=== PATIENT | male | born 1940 | race Caucasian/White ===

== ENCOUNTER → 2024-01-24 06:53 | Outpatient (REF) | payer MEDICARE, SELFPAY ==
[2024-01-24 10:14] LABS: % Basophils 0.3 % (0-2); % Eosinophils 2.9 % (0-6); % Immature Granulocytes 0.3 % (0-0.5); % Lymphocytes 28.8 % (20.5-51.1); % Monocytes 9.4 % (1.7-9.3); % Neutrophils 58.3 % (42.2-75.2); Absolute Eosinophils 0.3 10^3/uL (0-0.7); Absolute Lymphocytes 2.7 10^3/uL (1.2-3.4); Absolute Monocytes 0.9 10^3/uL (0.1-0.6); Absolute Neutrophils 5.4 10^3/uL (1.4-6.5); Hematocrit 41.3 % (39.0-52.0); Hemoglobin 14.5 g/dL (13.0-18.0); Mean Corp Hgb Conc. 35.1 g/dL (33.0-37.0); Mean Corpuscular Hgb 33.6 pg (27.0-31.0); Mean Corpuscular Volume 95.8 fL (80.0-94.0); Mean Platelet Volume 9.9 fL (7.4-10.4); Nucleated Red Blood Cells % 0 % (-); Platelet Count 153 10^3/uL (130-400); Red Blood Cell Count 4.31 10^6/uL (4.70-6.10); Red Cell Dist. Width 13.2 % (11.5-14.5); White Blood Cell Count 9.3 10^3/uL (4.8-10.8)
[2024-01-24 10:21] LABS: Urine Albumin Negative (Neg - Trace); Urine Bilirubin Negative (Negative); Urine Character Clear (Clear); Urine Color Yellow; Urine Glucose Negative (Negative); Urine Ketone Negative (Negative); Urine Leukocyte Negative (Negative); Urine Nitrite Negative (Negative); Urine Occult Blood Negative (Negative); Urine Urobilinogen Negative (Neg - 1+)
[2024-01-24 11:40] LABS: ALT (SGPT) 22 U/L (0-50); AST (SGOT) 40 U/L (17-59); Alkaline Phosphatase 118 U/L (38-126); Blood Urea Nitrogen 17 mg/dl (9-20); Calcium 9.2 mg/dl (8.4-10.2); Carbon Dioxide 25 mmol/L (22-30); Chloride 100 mmol/L (98-107); Glucose 98 mg/dl (70-99); Potassium 4.2 mmol/L (3.5-5.1); Sodium 134 mmol/L (135-145); Total Bilirubin 0.5 mg/dl (0.2-1.3); Total Cholesterol 149 mg/dl (50-199); Total Protein 6.8 g/dl (6.3-8.2); Triglyceride 125 mg/dl (10-149); Very Low Density Lipoprotein 25 mg/dl (0-30); eGFR > 60.00
[2024-01-24 11:41] LABS: HDL Cholesterol 36 mg/dl; LDL Cholesterol, Calculated 88 mg/dl
== END ==
LOC: HWLAB 06:53
PROVIDERS: ATTENDING PHYSICIAN Family Medicine
DX: E78.5 Hyperlipidemia, unspecified (principal); C34.91 Malignant neoplasm of unspecified part of right bronchus or lung; Z00.00 Encounter for general adult medical examination without abnormal findings
CPT/HCPCS: 36415; 80053; 80061; 81003; 85025

== ENCOUNTER → 2024-06-04 08:00 | Outpatient (REF) | payer MEDICARE, SELFPAY | LOC: HWRCS 08:00 | PROVIDERS: ATTENDING PHYSICIAN Internal Medicine Cardiovascular Disease; FAMILY PHYSICIAN Family Medicine | DX: I35.0 Nonrheumatic aortic (valve) stenosis (principal) | CPT/HCPCS: 93306 ==

== ENCOUNTER → 2025-01-08 08:34 | Outpatient (REF) | payer MEDICARE, SELFPAY ==
[2025-01-08 12:32] LABS: Hematocrit 41.7 % (39.0-52.0); Hemoglobin 15.0 g/dL (13.0-18.0); Mean Corp Hgb Conc. 36.0 g/dL (33.0-37.0); Mean Corpuscular Volume 95.9 fL (80.0-94.0); Nucleated Red Blood Cells % 0 % (-); Platelet Count 143 10^3/uL (130-400); Red Cell Dist. Width 13.6 % (11.5-14.5)
[2025-01-08 12:43] LABS: ALT (SGPT) 32 U/L (0-50); AST (SGOT) 50 U/L (17-59); Albumin 4.5 g/dl (3.5-5.0); Alkaline Phosphatase 91 U/L (38-126); Blood Urea Nitrogen 18 mg/dl (9-20); Calcium 9.0 mg/dl (8.4-10.2); Carbon Dioxide 26 mmol/L (22-30); Chloride 106 mmol/L (98-107); Glucose 89 mg/dl (70-99); HDL Cholesterol 35 mg/dl; LDL Cholesterol, Calculated 68 mg/dl; Potassium 3.8 mmol/L (3.5-5.1); Sodium 140 mmol/L (135-145); Total Protein 7.3 g/dl (6.3-8.2); Very Low Density Lipoprotein 29 mg/dl (0-30); eGFR > 60.00
[2025-01-08 13:00] LABS: Vitamin D, 25-OH*** 47.7 ng/mL (30-80)
[2025-01-08 13:13] LABS: TSH 1.50 uIU/ml (0.47-4.68)
[2025-01-08 13:32] LABS: Vitamin B12 263 pg/ml (239-931)
[2025-01-12 13:31] LABS: Lyme Antibody Screen, EIA Negative (Negative)
== END ==
LOC: HWLAB 08:34
DX: N40.0 Benign prostatic hyperplasia without lower urinary tract symptoms (principal); I25.10 Atherosclerotic heart disease of native coronary artery without angina pectoris; E78.5 Hyperlipidemia, unspecified; R53.83 Other fatigue; R00.8 Other abnormalities of heart beat
CPT/HCPCS: 36415; 80053; 80061; 82306; 82607; 84153; 84154; 84443; 85025; 86618

== ENCOUNTER 2025-03-06 08:14 | Day surgery (SDC) | payer MEDICARE, SELFPAY ==
[2025-03-06] VITALS (12 sets, daily range): BP systolic 94–143; BP diastolic 58–72; BMI 29.5
[2025-03-06 08:52] LABS: Hematocrit 40.3 % (39.0-52.0); Hemoglobin 14.3 g/dL (13.0-18.0); Mean Corp Hgb Conc. 35.5 g/dL (33.0-37.0); Mean Corpuscular Volume 97.1 fL (80.0-94.0); Platelet Count 142 10^3/uL (130-400); Red Cell Dist. Width 13.2 % (11.5-14.5)
[2025-03-06 09:29] LABS: Blood Urea Nitrogen 20 mg/dl (9-20); Calcium 9.3 mg/dl (8.4-10.2); Carbon Dioxide 25 mmol/L (22-30); Chloride 106 mmol/L (98-107); Estimated Creatinine Clearance 48 ml/min; Glucose 100 mg/dl (70-99); Potassium 4.0 mmol/L (3.5-5.1); Sodium 139 mmol/L (135-145); eGFR > 60.00
[2025-03-06] MEDS: NSS 234 ML IV (09:37)
--- NOTE | 2025-03-06 12:45 | ITS.CL.CATH ---
[facility] - Catheterization
Cardiac Catheterization
Procedure Report:
RIGHT AND LEFT HEART STUDY
Date of Procedure: March 06, 2025
Referring: Dr. Moise George
PROCEDURES:
1. Right heart catheterization
2. Left heart catheterization with coronary and single-plane left ventriculography
INDICATION: This is an 84-year-old gentleman who has been followed many years by Dr. George. He has a history of coronary artery disease and reported 90% or chronic total occlusion of the right coronary artery with collaterals. This was noted on
a cardiac catheterization done at [facility] more than 10 years ago. He has a history of ongoing tobacco use and non-small cell lung cancer as well as underlying COPD. He had resection of his right lung more than 20 years ago as a
curative procedure for his non-small cell lung cancer. He has known moderate aortic stenosis. His last echocardiogram from 2022 was notable for mean aortic valve gradient of 31 mmHg in the echocardiogram from 06/20/2024 was notable for a mean
gradient of 25 mmHg.
At baseline, Mr. Minaya is physically quite active. He and his state that he is outside in the yard cutting down trees and caring for his property. He states that his days begin with a 1 to 2 mile walk. Recently he may have noted some
increased shortness of breath with exertion. His last stress study in 2022 was notable for a small area of mildly decreased uptake that was fixed at the basal inferior septum, mid inferior and apical segments with an LVEF of 66%. He denies any
anginal symptoms aside from increased shortness of breath with exertion. He denies any chest discomfort.
He has a history going back several years of intermittent dizziness with episodes of near syncope. The episodes typically occur at rest when sitting in a car and are not exertionally related. Although family has noticed a subtle change in his
exercise capacity, the patient, has really noted no significant change. He has worn several CAM monitors with symptoms occurring during monitoring on at least 1 occasion. No significant arrhythmia was detected. He is now referred for coronary
angiography given increased shortness of breath with exertion and short runs of nonsustained ventricular tachycardia lasting up to 6 beats.
ACCESS: Right radial artery, 6 Croatian sheath in right common femoral vein, 6 Croatian sheath
HEMODYNAMICS : mmHg
RA (m) : 11
RV (s/d) : 42/5
PA (s/d, m) : 37/17, 24
PCWP (m) : 15
AO (s/d, m) : 135/57, 84
LV (s/d) : 142/9
LVEDP : 14
Estimated Lynne Cardiac Output: 4.75 L / min and Cardiac Index: 2.59 L/ min / m-2
Systemic vascular resistance: 15.4 Wood units or 1229 [id number](-5)
Pulmonary vascular resistance: 1.9 Wood units or 152 [id number](-5)
AORTIC VALVE:
Mean Gradient: 15 mmHg
Aortic Valve Area: 1.8 cm2
CORONARY FINDINGS :
Dominance: Right
LEFT MAIN: Normal
LEFT ANTERIOR DESCENDING: The LAD is heavily calcified as it arises from the left main with a 50% proximal stenosis and 60% mid stenosis. The distal vessel wraps around the apex.
CIRCUMFLEX: The circumflex is a calcified nondominant vessel that supplies a single sizable obtuse marginal branch. The mid circumflex has a calcified 90% stenosis extending into the proximal portion of the obtuse marginal branch. The obtuse
marginal branch becomes very tortuous and bifurcates into smaller and a larger daughter branch which in turn bifurcates.
RIGHT CORONARY ARTERY: The right coronary artery is a heavily calcified dominant vessel that was previously reported to have a high-grade calcified mid stenosis vs chronic total occlusion by coronary angiography at [facility] [place] more than 10 years ago. There is heavily calcified fairly diffuse atherosclerosis in the mid right coronary artery with likely focal occlusion and collateralization followed by a heavily calcified 90% distal stenosis. The PDA is a moderate
caliber vessel that is patent.
VENTRICULOGRAPHY: Left ventriculography is performed in SIDDIQUI projection. Digital single-plane left ventricular ejection fraction is estimated at 60%. There is very mild hypokinesis of the inferior apical wall.
SEDATION: 36 minutes of procedural sedation was utilized. An independent medical scheduler was present to assist with and help manage the patient's level of consciousness and physiologic status
RADIATION SUMMARY: Fluoro Time (min): 12.6, Dose (mGy): 527, DAP (Gy.cm2) : 44.9
CONCLUSIONS
1. Complex coronary disease in the RCA with heavily calcification and possible / probable collateralized chronic occlusion vs high grade stenosis. Intervention on the RCA would carry substantial risk given chronicity of the stenosis and lack of
collateralization. A large inferior myocardial infarction would result if collateral would shut during attempted intervention.
2. High grade mid circumflex - OM stenosis and mid LAD
3. Preserved LVEF
RECOMMENDATIONS
1. I have asked family to obtain old records of prior catheterization
2. Continued medical therapy. Could consider PET CT to assess for significant lateral or anterior ischemia if the patient and family are so inclined. I would be looking for significant ischemia in this vascular distribution
3. Continue aspirin and increase statin to 80mg per family request and given LDL cholesterol of 68 mg/dl
4. Mr. Minaya will follow up with Dr. George. I would wait for his input before ordering additional studies (like PET CT) given patients lack of anginal symptoms.
Copy to: Dr. Moise George
== END 2025-03-06 14:38 | disposition home or self-care (01) ==
LOC: CATH 08:14
PROVIDERS: ATTENDING PHYSICIAN Internal Medicine Interventional Cardiology; OTHER PHYSICIAN Internal Medicine Cardiovascular Disease
DX: I25.10 Atherosclerotic heart disease of native coronary artery without angina pectoris (principal); I25.84 Coronary atherosclerosis due to calcified coronary lesion; I47.20 Ventricular tachycardia, unspecified; Z79.82 Long term (current) use of aspirin; I10 Essential (primary) hypertension; J44.9 Chronic obstructive pulmonary disease, unspecified; F17.210 Nicotine dependence, cigarettes, uncomplicated; Z79.899 Other long term (current) drug therapy; Z90.2 Acquired absence of lung [part of]; I35.0 Nonrheumatic aortic (valve) stenosis
CPT/HCPCS: 80048; 85027; 93460; 99152; 99153; C1769; C1894; Q9967

== ENCOUNTER 2025-05-16 16:32 | Emergency (ER) | payer MEDICARE, SELFPAY ==
[2025-05-16 16:34] VITALS: BP 148/84
[2025-05-16] MEDS: NSS 500 IV (17:50)
[2025-05-16] MEDS: DUONEB 3 ML INH (17:53)
[2025-05-16 18:01] LABS: Hematocrit 42.7 % (39.0-52.0); Hemoglobin 14.7 g/dL (13.0-18.0); Mean Corp Hgb Conc. 34.4 g/dL (33.0-37.0); Mean Corpuscular Volume 99.5 fL (80.0-94.0); Nucleated Red Blood Cells % 0 % (-); Platelet Count 146 10^3/uL (130-400); Red Cell Dist. Width 13.5 % (11.5-14.5)
[2025-05-16 18:23] LABS: ALT (SGPT) 30 U/L (0-50); AST (SGOT) 50 U/L (17-59); Albumin 4.2 g/dl (3.5-5.0); Alkaline Phosphatase 98 U/L (38-126); Blood Urea Nitrogen 14 mg/dl (9-20); Calcium 9.4 mg/dl (8.4-10.2); Carbon Dioxide 28 mmol/L (22-30); Chloride 99 mmol/L (98-107); Glucose 104 mg/dl (70-99); Potassium 3.9 mmol/L (3.5-5.1); Sodium 133 mmol/L (135-145); Total Protein 7.2 g/dl (6.3-8.2); eGFR > 60.00
[2025-05-16 19:58] VITALS: BP 129/68
--- NOTE | 2025-05-16 20:29 | ED.GENMED ---
History of Present Illness
General
Chief Complaint: Abdominal Symptoms
Source: patient, spouse and family
Time Seen by Provider: 05/16/25 17:12
History of Present Illness
History of Present Illness:
Note:
CHIEF COMPLAINT(S)
Abdominal pain and diarrhea.
HISTORY OF PRESENT ILLNESS
The patient is an 84-year-old male who presents with complaints of abdominal pain and diarrhea. Symptoms began three days ago with an onset of diarrhea, which has since resolved. The patient reports significant discomfort in the lower abdomen,
specifically under the belly button on both sides. The patient also experienced vomiting three days ago, which has resolved. Additionally, the patient has had a cough persisting for approximately four weeks. The patient notes that the discomfort
increases after spending a couple of hours upright in the morning, but he is able to sleep in a reclined position. The patient denies any fever. There is a history of diverticulosis in the family, specifically in the patients mother. The patient has
a past medical history significant for a lobectomy due to lung cancer, followed by chemotherapy. On physical examination, there is a noted umbilical hernia which is tender, and the patient is advised to monitor the condition to prevent incarceration.
PAST MEDICAL AND SURIGICAL HISTORY
Right lung lobectomy for lung cancer followed by chemotherapy.
PHYSICAL EXAM
General: Alert, no acute distress.
Skin: Warm, dry.
Head: Normocephalic, atraumatic.
Neck: Supple, trachea midline.
Eye, Ears, Nose, Mouth and Throat: Oral mucosa moist.
Cardiovascular: Regular heart rate without murmurs.
Respiratory: Coarse breath sounds bilaterally.
Gastrointestinal: Tender lower abdomen, presence of an umbilical hernia; nondistended.
Back: Normal range of motion, normal alignment.
Musculoskeletal: Normal range of motion, normal strength.
Neurological: Alert and oriented to person, place, time, and situation, no focal neurological deficit observed.
Psychiatric: Cooperative, appropriate mood & affect.
PROBLEM LIST
Acute Problems:
- Abdominal pain
- Umbilical hernia
- Persistent cough
- Resolved diarrhea
Chronic Problems:
- History of lung cancer
PLAN
1. Conduct an abdominal scan to assess for diverticulitis or signs of inflammation in the colon.
2. Obtain laboratory studies, including blood tests, to evaluate the patients current condition.
3. Perform a chest X-ray to rule out pneumonia or other respiratory conditions due to the persistent cough.
4. Administer an albuterol nebulizer treatment to provide relief from the cough.
5. Provide hydration therapy due to recent diarrhea, although the patient reports good fluid intake.
6. Monitor the umbilical hernia for signs of increasing pain or potential incarceration.
DIFFERENTIAL DIAGNOSIS
The differential diagnosis includes, in no particular order and is not limited to:
1. Diverticulitis
2. Hernia-related complications
3. Gastroenteritis
4. Colitis
5. Irritable Bowel Syndrome (IBS)
6. Small Bowel Obstruction
7. Lower Respiratory Tract Infection
8. Pneumonia
9. Gastroesophageal Reflux Disease (GERD)
10. Peptic Ulcer Disease
CARE-UPDATE
05/16/25 - 20:23
Patient presented with an umbilical hernia, likely resulting from a previous operation. Imaging showed dilation of the bowel, possibly indicating either an infection or partial small bowel stricture from scar tissue. Patient is currently stable,
passing gas, and not experiencing vomiting, suggesting some bowel movement. X-ray and labs are unremarkable; no signs of diverticulitis.
Two management options were discussed:
1. Allow the patient to go home with close monitoring and adhere to a clear liquid diet for 24-48 hours to rest the bowel. Fluids such as water, coffee, soup broth, Jello, applesauce, and orange juice are permitted.
2. Hospital observation to monitor progress and administer clear fluids as needed.
Patient agreed to the home management plan with the understanding of returning if symptoms worsen (e.g., inability to pass gas, increased pain, vomiting). Plans to advance to a BRAT diet if tolerated after 48 hours and gradually resume normal diet.
Provided patient with clear liquid diet instructions and will receive a copy of their lab results.
Disposition:
SUMMARY OF ENCOUNTER
An 84-year-old male presented with resolved diarrhea and vomiting, now experiencing discomfort in the lower abdomen. Initial evaluation showed an umbilical hernia, which I reduced. CT displayed mildly dilated proximal to mid-small bowel, air-fluid
levels indicating a mild partial proximal small bowel obstruction. Labs showed normal CBC and CMP. Reassessment indicated improvement; the patient was passing gas without vomiting.
DISPOSITION
Discharge
ASSESSMENT
Mild partial proximal small bowel obstruction, possibly due to the reduced umbilical hernia.
PLAN
The patient is recommended for discharge with instructions to follow a clear liquid diet for 48 hours and was advised to support the umbilical hernia to avoid further complications. Outpatient follow-up for the hernia and potential surgical
consultation was recommended. The patient is to return immediately if experiencing worsening pain or vomiting.
INDEPENDENT REVIEW OF LABS AND INTERPRETATION OF TESTS
My independent review of CBC is normal. My independent review of CMP is normal. My independent interpretation of the CT scan reveals mildly dilated proximal to mid-small bowel segments with air-fluid levels, suggesting a mild partial proximal small
bowel obstruction.
PATIENT EDUCATION AND COUNSELING
The patient and family were advised on following a clear liquid diet for 48 hours and supporting the umbilical hernia, understanding the importance of returning to the emergency department if symptoms worsen, and discussing potential surgical
options for hernia management.
FOLLOW-UP INSTRUCTIONS
Follow up with a surgeon for evaluation of the umbilical hernia and potential surgical intervention. Emphasize immediate return to the emergency department if new symptoms arise.
MEDICAL DECISION MAKING
-Complexity of Data Reviewed: Chronic conditions affecting care [History of lung cancer]. Differential diagnosis included hernia-related complications and small bowel obstruction.
-Data:
Category 1: Labs reviewed included normal CBC and CMP.
Category 2: My independent interpretation of the CT scan revealed signs of intestinal dilation indicative of obstruction.
Category 3: Discussion of management with family members.
-Risk: Consideration of Admission/Observation: Escalation of care including admission/observation was considered given the complexity and risk of the patients presenting complaint, exam findings, and underlying comorbidities. However, ultimately, I
feel the patient is safe for outpatient management with close follow-up. Reasoning: Work-up reassuring, does not reveal any acute life/organ-threatening processes, patients symptoms well controlled upon reevaluation, reexamination is reassuring,
vitals are stable, patient agreeable with discharge, reliable for follow-up.
DIAGNOSIS
- K56.60 Partial intestinal obstruction, unspecified as to acute or chronic.
- K42.9 Umbilical hernia without obstruction or gangrene.
Past History
Past History
ED Past Medical History: Cancer
ED Past Surgical History: Other (Lung resection ); Negative Cardiac
Social History
Tobacco: Former smoker
Alcohol: Occasional
Drug: None
Personal:
Living: with family
Employment: Retired
Phy Exam
Physical Exam
Physical Exam:
.
Course
Orders/Labs/Results
Orders:
Orders
05/16/25 17:33
0.9% Sodium Chloride 500 ml [Nss] 500 ml IV BOLUS
05/16/25 17:35
CT Abd/Pel (IV only)-DH only Urgent
Comment:
Reason For Exam: lower abd pain
05/16/25 17:37
Ipratropium/Albuterol Sulfate [Duoneb] 3 ml INH R NOW STA
05/16/25 17:38
CR Chest - 2 Views Urgent
Comment:
Reason For Exam: cough, h/o lobectomy
05/16/25 17:51
Complete Blood Count/With Diff Urgent
Comprehensive Metabolic Panel Urgent
Abnormal Lab Results
05/16/25
17:51
RBC 4.29 L 10^6/uL
(4.70-6.10)
MCV 99.5 H fL
(80.0-94.0)
MCH 34.3 H pg
(27.0-31.0)
Lymphocytes % 20.1 L %
(20.5-51.1)
Sodium 133 L mmol/L
(135-145)
Glucose 104 H mg/dl
(70-99)
05/16/25 17:51
05/16/25 17:51
Vital Signs
Initial and Last Documented VS:
Initial Vital Signs
Temp Pulse Resp BP Pulse Ox
97.6 F 70 16 148/84 95
05/16/25 16:34 05/16/25 16:34 05/16/25 16:34 05/16/25 16:34 05/16/25 16:34
Last Documented Vital Signs
Temp Pulse Resp BP Pulse Ox
97.6 F 75 17 129/68 94
05/16/25 16:34 05/16/25 19:58 05/16/25 19:58 05/16/25 19:58 05/16/25 19:58
*Pulse Oximetry
SaO2: 94
Oxygen Mode of Delivery: Room air
Patient hypoxic: no
*Critical Care Note
Total Time (30-74mins, 75-104mins- exclusive of procedures): Not Applicable
ED Attending Note
-
Portions of this chart may have been created with voice recognition software.� Occasional wrong word or��sound alike� substitutions may have occurred due to the inherent limitations of voice recognition software.
Discharge Plan
Departure
Patient Disposition: Home (Routine Discharge)
Date of Disposition: 05/16/25
Time of Disposition: 20:30
Patient with high blood pressure during this ER visit?: No
Discharge Problem:
Partial small bowel obstruction
Instructions: Clear Liquid Diet, Abdominal Pain
Prescriptions:
No Action
omeprazole 20 MG capsule,delayed release(DR/EC)
20 mg PO DAILY
Sleep Aid (doxylamine) 25 MG tablet
12.5 mg PO HS
enalapril maleate 10 MG tablet
10 mg PO BID
diltiazem HCl 300 MG capsule,extended release 24hr
300 mg PO DAILY
aspirin 81 MG tablet,delayed release (DR/EC)
81 mg PO QPM
coenzyme S45-dhstuaz E 1 CAP capsule
1 cap PO DAILY
folic acid 0.8 MG capsule
0.8 mg PO DAILY
hydrochlorothiazide 12.5 MG tablet
12.5 mg PO DAILY
multivitamin with folic acid [Tab-A-Arian] 1 TABLET tablet
1 tab PO DAILY
fluticasone furoate-vilanterol [Breo Ellipta] 1 EACH blister with device
1 puff inhalation DAILY
acetaminophen [Tylenol Extra Strength] 500 MG tablet
1,000 mg PO Q6HPRN PRN (Reason: mild pain) Qty: 1 0RF
ibuprofen 200 MG tablet
400 - 600 mg PO Q6HPRN PRN (Reason: moderate pain) Qty: 1 0RF
atorvastatin [Lipitor] 80 mg tablet
80 mg PO QPM Qty: 90 5RF
Referrals:
Dejuan Buchanan MD, Resident [Family Provider, General]
Florentin Villa MD [Active, Surgical]
Activity Restrictions/Additional Instructions:
Partial small bowel obstruction
Please stick to clear liquid diet for the next 48 hours. Please see your doctor or surgery in the next 1 week for evaluation of your umbilical hernia. Please advance diet slowly after 48 hours if you continue to feel improved as discussed. Return
immediately for vomiting, abdominal pain, fevers, if your hernia is protruded and painful or any other concerns.
Interventions
Interventions:
*Risk Screen - Suicide Last Done: 05/16/25 18:00
*General Assessment Last Done: 05/16/25 18:00
*Neglect/Abuse Screening Last Done: 05/16/25 18:00
*ED- Fall Risk Assessment Last Done: 05/16/25 18:00
*ED COVID-19 Vaccine History Last Done: 05/16/25 18:00
*ED Influenza Vaccine History Last Done: 05/16/25 18:00
LB-[id number]-[id number] Assessment Last Done: 05/16/25 17:58
Discharge Date and Time
Print Language: [id number]
== END 2025-05-16 20:51 | disposition home or self-care (01) ==
LOC: EMR 16:32
PROVIDERS: EMERGENCY PHYSICIAN Emergency Medicine
DX: K56.600 Partial intestinal obstruction, unspecified as to cause (principal); K42.9 Umbilical hernia without obstruction or gangrene; R05.9 Cough, unspecified; Z85.118 Personal history of other malignant neoplasm of bronchus and lung; Z90.2 Acquired absence of lung [part of]; Z92.21 Personal history of antineoplastic chemotherapy; Z87.891 Personal history of nicotine dependence
CPT/HCPCS: 94640; 96360; 99284; 71046; 74177; 80053; 85025; Q9967

== ENCOUNTER → 2025-06-08 08:16 | Outpatient (REF) | payer MEDICARE, SELFPAY | LOC: HWRCS 08:16 | PROVIDERS: ATTENDING PHYSICIAN Internal Medicine Cardiovascular Disease | DX: I35.0 Nonrheumatic aortic (valve) stenosis (principal) | CPT/HCPCS: 93306 ==

== ENCOUNTER 2025-06-10 09:02 | Emergency (ER) | payer MEDICARE, SELFPAY ==
[2025-06-10 09:09] VITALS: BP 165/78
[2025-06-10 09:38] LABS: Hematocrit 41.4 % (39.0-52.0); Hemoglobin 14.7 g/dL (13.0-18.0); Mean Corp Hgb Conc. 35.5 g/dL (33.0-37.0); Mean Corpuscular Volume 96.1 fL (80.0-94.0); Nucleated Red Blood Cells % 0 % (-); Platelet Count 154 10^3/uL (130-400); Red Cell Dist. Width 14.2 % (11.5-14.5)
[2025-06-10 09:48] LABS: ALT (SGPT) 24 U/L (0-50); AST (SGOT) 43 U/L (17-59); Albumin 4.6 g/dl (3.5-5.0); Alkaline Phosphatase 122 U/L (38-126); Blood Urea Nitrogen 14 mg/dl (9-20); Calcium 9.3 mg/dl (8.4-10.2); Carbon Dioxide 27 mmol/L (22-30); Chloride 105 mmol/L (98-107); Glucose 103 mg/dl (70-99); Lipase 74 U/L (23-300); Potassium 3.7 mmol/L (3.5-5.1); Sodium 140 mmol/L (135-145); Total Protein 7.6 g/dl (6.3-8.2); eGFR > 60.00
[2025-06-10 11:23] VITALS: BP 153/72
--- NOTE | 2025-06-10 12:37 | ED.GENMED ---
History of Present Illness
General
Chief Complaint: Abdominal Symptoms
Time Seen by Provider: 06/10/25 11:14
History of Present Illness
History of Present Illness:
see MDM
Past History
Past History
ED Past Medical History: Cancer
ED Past Surgical History: Other (Lung resection ); Negative Cardiac
Social History
Tobacco: Former smoker
Alcohol: Occasional
Drug: None
Personal:
Living: with family
Employment: Retired
Phy Exam
Physical Exam
Physical Exam:
see MDM
Course
Orders/Labs/Results
Orders:
Orders
06/10/25 09:15
Complete Blood Count/With Diff Urgent
Comprehensive Metabolic Panel Urgent
Lipase Urgent
06/10/25 11:38
Obstruct Series W/PA Chest [CR Obstruct Series W/pa Chest] Urgent
Comment:
Reason For Exam: hernia
Abnormal Lab Results
06/10/25
09:15
RBC 4.31 L 10^6/uL
(4.70-6.10)
MCV 96.1 H fL
(80.0-94.0)
MCH 34.1 H pg
(27.0-31.0)
Glucose 103 H mg/dl
(70-99)
06/10/25 09:15
06/10/25 09:15
Vital Signs
Initial and Last Documented VS:
Initial Vital Signs
Temp Pulse Resp BP Pulse Ox
36.5 C 58 16 165/78 95
06/10/25 09:09 06/10/25 09:09 06/10/25 09:09 06/10/25 09:09 06/10/25 09:09
Last Documented Vital Signs
Temp Pulse Resp BP Pulse Ox
36.5 C 60 16 134/87 97
06/10/25 09:09 06/10/25 12:45 06/10/25 12:45 06/10/25 12:45 06/10/25 12:45
MDM/Problems Addressed
Differential Diagnosis Includes:
see MDM
MDM/Problems Addressed:
Note:
CHIEF COMPLAINT(S)
Recurrent abdominal pain due to umbilical hernia.
HISTORY OF PRESENT ILLNESS
The patient is an 84-year-old male with a history of umbilical hernia diagnosed approximately one month ago. He presents today with a recurrence of lower gastrointestinal pain and a sensation of the hernia protruding, similar to his previous
episode. The previous hernia episode was managed by reducing the hernia, which initially provided relief. This morning, the patient experienced discomfort in the umbilical region while performing routine activities, including breakfast consumption.
He noted an ache in the area with pain radiating inward but not to the back. The patient attempted to reduce the hernia himself, which was challenging. He denied nausea or vomiting at this time, though he experienced vomiting during the previous
episode. He also reported having mild constipation the previous night but no major bowel movement difficulties today.
The patient recalls a recent history of increased coughing, which may have exacerbated the hernia. He also expressed concern about insufficient gas movement today. There is no reported straining during defecation currently, though there was some
last month. The patient has noted clear sputum production with his cough.
PAST MEDICAL AND SURIGICAL HISTORY
The patient reports a past lung resection due to cancer, performed in 2019.
CHRONIC MEDICAL CONDITIONS SIGNIFICANTLY AFFECTING CARE
Chronic Obstructive Pulmonary Disease (COPD).
SOCIAL HISTORY
The patient has a history of smoking, but it is not stated if it has ceased or continued.
PHYSICAL EXAM
GENERAL: Alert , in no apparent distress
EYE: pupils equal and reactive
NECK: Supple
ENT: o/p clr, mmm.
CARDIAC: Regular rate and rhythm .
LUNGS: Clear breath sounds bilaterally, no acute respiratory distress, no wheezes/rales/rhonchi
ABDOMEN: Soft, very small umbilical hernia, no skin discoloration, easily reducible without focal tenderness, no r/g, no cvat, normal bowel sounds
NEUROLOGICAL: Alert and oriented, no focal neuro deficits
SKIN: Warm and dry, skin intact.
MUSCULOSKELETAL: No edema, well perfused. neg azalia's sign
PSYCH: Normal and appropriate interaction.
Nursing notes reviewed and vital signs reviewed.
PROBLEM LIST
Acute:
1. Abdominal pain due to recurrent umbilical hernia.
2. Wheezing and potential respiratory issues likely exacerbated by COPD.
PLAN
1. Obtain X-ray imaging of the abdomen to evaluate for bowel obstruction and assess lung condition for potential pneumonia.
2. Contact the on-call surgeon to discuss advancing the surgical consultation from the initially scheduled date due to recurrent hernia complications.
3. Discuss the use of an abdominal binder for hernia support, especially during activities that may exacerbate the hernia.
DIFFERENTIAL DIAGNOSIS
The Differential Diagnosis includes, in no particular order and is not limited to:
1. Recurrent umbilical hernia.
2. Partial bowel obstruction.
3. Respiratory infection or pneumonia.
4. Chronic Obstructive Pulmonary Disease exacerbation.
5. Abdominal adhesions or scarring from past surgeries.
6. Diverticulitis.
7. Abdominal muscle strain.
8. Gastritis or peptic ulcer disease.
9. Gastroesophageal reflux disease.
10. Hernia incarceration or strangulation.
84 y/o M
lung cancer, smoker, lobectomy
coughs frequently
known umbilical hernia since lsat [facility]
PSBO on ct 05/16
pt's hernia was reduced in the ED
he hasn't been able to see dr carter
he is here with similar pain/bloating since this morning after coughign and after having BM
he doesn't feel it was directly related to BM
pt tried to reduce it, says it was difficult but now he feels better
no vomiting
well appearing
the ubmilical hernia is easily reducible here
cxray indep reviewed
d/w ed attending
i spoke with dr. perez to try to get pt earlier appt with surgery than radhames
*Pulse Oximetry
SaO2: 98
Oxygen Mode of Delivery: Room air
Patient hypoxic: no (97)
*Critical Care Note
Total Time (30-74mins, 75-104mins- exclusive of procedures): Not Applicable
ED Attending Note
-
Portions of this chart may have been created with voice recognition software.� Occasional wrong word or��sound alike� substitutions may have occurred due to the inherent limitations of voice recognition software.
Discharge Plan
Departure
Patient Disposition: Home (Routine Discharge)
Date of Disposition: 06/10/25
Time of Disposition: 12:40
Patient with high blood pressure during this ER visit?: No
Discharge Problem:
Hernia, umbilical
Instructions: Abdominal wall hernias
Prescriptions:
No Action
omeprazole 20 MG capsule,delayed release(DR/EC)
20 mg PO DAILY
Sleep Aid (doxylamine) 25 MG tablet
12.5 mg PO HS
enalapril maleate 10 MG tablet
10 mg PO BID
diltiazem HCl 300 MG capsule,extended release 24hr
300 mg PO DAILY
aspirin 81 MG tablet,delayed release (DR/EC)
81 mg PO QPM
coenzyme S36-unicsdf E 1 CAP capsule
1 cap PO DAILY
folic acid 0.8 MG capsule
0.8 mg PO DAILY
hydrochlorothiazide 12.5 MG tablet
12.5 mg PO DAILY
multivitamin with folic acid [Tab-A-Arian] 1 TABLET tablet
1 tab PO DAILY
fluticasone furoate-vilanterol [Breo Ellipta] 1 EACH blister with device
1 puff inhalation DAILY
acetaminophen [Tylenol Extra Strength] 500 MG tablet
1,000 mg PO Q6HPRN PRN (Reason: mild pain) Qty: 1 0RF
ibuprofen 200 MG tablet
400 - 600 mg PO Q6HPRN PRN (Reason: moderate pain) Qty: 1 0RF
atorvastatin [Lipitor] 80 mg tablet
80 mg PO QPM Qty: 90 5RF
Referrals:
Dejuan Buchanan MD, Resident [Family Provider, General]
Lawson Carter MD [Active, Surgical] - Follow up in 1 week
Activity Restrictions/Additional Instructions:
Make sure to avoid straining, hold your abdomen when you need to cough, and abdominal binder probably will be too helpful since your hernia is so small. I did speak with Dr. Perez to try to get a note to the office to get Dr. Carter's visit moved
up
Return for vomiting, worsening pain, inability to reduce your hernia, fever or chills or any concerns
Interventions
Interventions:
*Risk Screen - Suicide Last Done: 06/10/25 11:23
*General Assessment Last Done: 06/10/25 09:11
*Neglect/Abuse Screening Last Done: 06/10/25 09:11
*ED COVID-19 Vaccine History Last Done: 06/10/25 09:11
*ED Influenza Vaccine History Last Done: 06/10/25 09:11
[facility] Fall Risk Assessment Tool Last Done: 06/10/25 11:22
*Nursing Disposition Last Done: 06/10/25 12:45
PE-Wyeyjh-Qucitndcpw Assessment Last Done: 06/10/25 11:23
Discharge Date and Time
Discharge Date/Time: 06/10/25 12:55
Print Language: VIET[place]ESE
[2025-06-10 12:45] VITALS: BP 134/87
== END 2025-06-10 12:55 | disposition home or self-care (01) ==
LOC: EMR 09:02
PROVIDERS: Emergency Medicine; EMERGENCY PHYSICIAN Emergency Medicine
DX: K42.9 Umbilical hernia without obstruction or gangrene (principal); J44.9 Chronic obstructive pulmonary disease, unspecified; Z87.891 Personal history of nicotine dependence; Z90.2 Acquired absence of lung [part of]; Z85.118 Personal history of other malignant neoplasm of bronchus and lung
CPT/HCPCS: 99284; 74022; 80053; 83690; 85025